=== PATIENT | male | born 1950 | race Caucasian/White ===

== ENCOUNTER 2017-06-29 14:54 | Emergency (ER) | payer OTHER ==
[2017-06-29 15:00] VITALS: BP 138/65; BMI 49.2
--- NOTE | 2017-06-29 15:30 | DR.EXTPAIN ---
HPI - Time seen Time seen: 15:10 - PCP Primary Care Physician: NITHYA - HPI Comment HPI Comment: Lt. wrist pain and swelling. Symmptoms started yesterday morning. On Monday evening, he was trying to and did twist open a jar. He is left hand dominant. - Complaint/Symptoms Chief Complaint:: PT. WAS ATTEMPTING TO OPEN A JAR 2 DAYS AGO AND TWISTED HIS LEFT WRIST. PT. C/O PAIN AND SWELLING TO LEFT WRIST. TOP OF LEFT HAND IS RED. - Nurses notes reviewed Nurses Notes Review: Yes - Source History Provided: Patient - Mode of arrival Mode of Arrival: Ambulatory - Timing Onset of Chief Complaint: 06/27/17 - Associated signs and symptoms Associated Signs and Symptoms: Swelling (left wrist) PMH - PMH Past Medical History: Yes Past Medical History: COPD, Diabetes, Hypertension Past Surgical History: Yes Past Surgical History Comment: LOWER BACK - Family History History of Family Medical Conditions: No - Social History Does patient currently use any type of tobacco product: Yes Have you used tobacco products in the last 12 months: Yes Type of Tobacco Use: Cigarettes Does any household member use tobacco: No Alcohol Use: None Do you use any recreational Drugs:: Yes (marijuana) Lives With: Spouse Lives Where: Home - infectious screening In the last 2 months have you had wt loss of >10#?: NO Have you had fever, night sweats or hemotysis?: No Have you traveled outside the country in the last 6 months?: No Isolation: Standard ROS - Review of Systems Constitutional: No Symptoms Reported Eyes: No Symptoms Reported ENTM: No Symptoms Reported Respiratoy: No Symptoms Reported Cardiovascular: No Symptoms Reported Gastrointestinal/Abdominal: No Symptoms Reported Genitourinary: No Symptoms Reported Neurological: No Symptoms Reported Musculoskeletal: Joint Pain (left wrist), Joint Swelling (left wrist), Wrist ( pain and swelling on left wrist) Integumentary: No Symptoms Reported Hematologic/Lymphatic: No Symptoms Reported Endocrine: No Symptoms Reported Psychiatric: No Symptoms Reported PE - Vital Signs Vitals: Temperature 98.4 F Pulse Rate 79 Respiratory Rate 17 Blood Pressure 138/65 O2 Sat by Pulse Oximetry 96 - General Limitations: No Limitations General Appearance: Alert, In No Apparent Distress - Head Head Exam: Normal Inspection - Eyes Eye exam: Normal Appearance - ENT ENT Exam: Normal Exam - Neck Neck Exam: Normal Inspection - Chest Chest Inspection: Normal Inspection - Respiratory Respiratory Exam: Normal Lung Sounds Bilat - Cardiovascular Cardiovascular Exam: Regular Rate, Normal Rhythm - Abdominal Exam Abdominal Exam: Normal Inspection, Normal Bowel Sounds, Soft - Upper Extremities Shoulder Exam: Tenderness (Lt. wrist), Swelling (lt. wrist). negative: Normal Inspection, Full ROM (ROM of his left wrist is decreased due to swelling) - Lower Extremities Neurovascular/Tendon Exam: Normal Capillary Refill Gait Exam: Observed and Normal - Neurological Neurological Exam: Alert, Oriented X3, CN II-XII Intact - Psychiatric Psychiatric Exam: Normal Affect, Normal Mood - Skin Skin Exam: Warm, Dry, Intact, Normal Color ROR - XRAY XRAY Interpreted by: Radiologist (Radiologist interpretation of Lt. wrist x-ray : Normal bony appearance, small metallic objective in skin or subcutaneous tissue.) - Diagnosis Discharge Problem: Left wrist sprain - Discharge Plan Condition: Stable - Follow ups/Referrals Follow ups/Referrals: NINFA BARRIGA [Primary Care Provider] - 3 days - Instructions Instructions: Wrist Sprain
--- NOTE | 2017-06-29 15:47 | RAD ---
Examination: Left wrist, three views History: Pain after opening a jar Findings: Normal appearance of carpal complex, without evidence for fracture, dislocation or specific arthropathy. Joint spaces are maintained. There are 2 or more small metallic foreign fragments in th e soft tissues posterior to the distal radius and ulna. Impression: Normal appearance of wrist. Metallic foreign material on skin surface or subcutaneous tis sues as described. Reported By:
== END 2017-06-29 16:41 | disposition home or self-care (01) ==
LOC: ER 15:02
DX: S63.502A Unspecified sprain of left wrist, initial encounter (principal); Y33.XXXA Other specified events, undetermined intent, initial encounter; Y92.9 Unspecified place or not applicable
CPT/HCPCS: 73100; 99282; 99283

== ENCOUNTER 2022-08-23 18:09 | Observation (INO) ==
--- NOTE | 2022-08-23 19:06 | DR.GENAD ---
HPI <Raphael Shelton - Last Filed: 08/25/22 08:41> Time Seen Time Seen by Provider: 08/23/22 19:04 PCP Primary Care Physician: DB Complaint/Symptoms Chief Complaint Doctors Comments: 71 y/o male presents for evaluation. Feeling bad since yesterday. + cough, productive of some brown phlegm (cough worse than usual, + h/o COPD). Having shortness of breath, worse with exertion. + low grade fever, + body aches. Was exposed to covid a week ago. Has been vaccinated for covid. Chief Complaint:: PT C/O FEVER SHAKING AND SHORTNESS OF BREATH X 1 DAY PT HAS BEEN EXPOSAED TO COVID COVID-19 Coronavirus risk:travel/contact w/high risk person: Yes Has patient experienced Coronavirus symptoms: Yes Coronavirus symptoms experienced: Fever, Coughing and Shortness of Breath Nurses notes reviewed Nurses Notes Review: Yes Source History Provided: Patient Mode of Arrival Mode of Arrival: Ambulatory Timing Onset of Chief Complaint: 08/23/22 <Evelina Mijares - Last Filed: 08/24/22 06:01> HPI Comment HPI Comment: Presents as below; normally uses 2 lpm oxygen at night only PMH <Raphael Shelton - Last Filed: 08/25/22 08:41> PMH Past Medical History: Yes Past Medical History: Anxiety, CHF, COPD, Diabetes and Hypertension Past Surgical History: Yes Surgical History: Ortho Surgery Family History History of Family Medical Conditions: Yes Family Medical History: Diabetes Mellitus, [place] and Hypertension Social History Does patient currently use any type of tobacco product: Yes Have you used tobacco products in the last 12 months: Yes Type of Tobacco Use: Cigarettes Does any household member use tobacco: Yes Alcohol Use: None Do you use any recreational Drugs:: No Lives With: Spouse Travel Risk Coronavirus risk:travel/contact w/high risk person: Yes Has patient experienced Coronavirus symptoms: Yes Coronavirus symptoms experienced: Fever, Coughing and Shortness of Breath Infectious screening In the last 2 months have you had wt loss of >10#?: NO Have you had fever, night sweats or hemotysis?: No Have you traveled outside the country in the last 6 months?: No Isolation: Droplet ROS <Raphael Shelton - Last Filed: 08/25/22 08:41> Review of Systems Constitutional: Fever and Weakness Eyes: No Symptoms Reported ENTM: No Symptoms Reported Respiratoy: Moist Cough and Short of Breath Cardiovascular: No Symptoms Reported Gastrointestinal/Abdominal: No Symptoms Reported Genitourinary: No Symptoms Reported Neurological: No Symptoms Reported Musculoskeletal: Muscle Pain Integumentary: No Symptoms Reported Hematologic/Lymphatic: No Symptoms Reported Psychiatric: No Symptoms Reported All Other Systems: Reviewed and Negative PE <Raphael Jamisonliz - Last Filed: 08/25/22 08:41> Vital Signs Vitals: Temperature 99.4 F Pulse Rate 99 Respiratory Rate 30 Blood Pressure 110/52 O2 Sat by Pulse Oximetry 95 General General Appearance: Alert and Other (+ mild respiratory distress) Eyes Eye exam: PERRL and EOMI ENT ENT Exam: Normal Oropharynx and Mucous Membranes Moist Neck Neck Exam: Normal Inspection and Full ROM Respiratory Respiratory Exam: Respiratory Distress Respiratory Exam: Bilateral: Wheezing and Bilateral: Rhonchi Cardiovascular Cardiovascular Exam: Regular Rate, Normal Rhythm and Normal Heart Sounds Abdominal Exam Abdominal Exam: Normal Bowel Sounds and Soft; negative Tenderness Extremities Extremities Exam: Normal Inspection and Full ROM; negative Edema Back Back Exam: Normal Inspection Neurologic Neurological Exam: Alert, Oriented X3 and CN II-XII Intact; negative Motor Sensory Deficit Skin Skin Exam: Warm and Dry <Evelina Mijares - Last Filed: 08/24/22 06:01> Vital Signs Vitals: Temperature 99.4 F Pulse Rate 99 Respiratory Rate 30 Blood Pressure 110/52 O2 Sat by Pulse Oximetry 95 COURSE <Raphael Jamisonliz - Last Filed: 08/25/22 08:41> Treatment Treatment: 71 y/o male, ill since yesterday. + COPD, having wheezing, worsening dyspnea. W/u initiated. Given IV solu-medrol, duoneb treatment. <Evelina Mijares - Last Filed: 08/24/22 06:01> Treatment Treatment: 71 y/o male, ill since yesterday. + COPD, having wheezing, worsening dyspnea. W/u initiated. Given IV solu-medrol, duoneb treatment. 2135 71 y/o with copd on chronic oxygen at night in as above; flu A + and bilateral pneumonia on pcxr; still very tight w/coarse wheezing s/p two jet nebs; O2 61 on 3lpm with CO2 46 and bicarb 33; will admit for aggressive nebs, tamiflu and iv abx Reevaluation 1st: Unchanged (minimal improvement per pt; still very tight with coarse wheezing throughout) ROR <Raphael Shelton - Last Filed: 08/25/22 08:41> Labs Reviewed Result Diagrams: 08/25/22 04:25 08/25/22 04:25 Laboratory: WBC 6.7 X10^3/uL (3.6-10.0) 08/23/22 19: RBC 4.66 X10^6/uL (4.7-6.0) L 08/23/22 19:21 Hgb 13.4 g/dL (13.5-18.0) L 08/23/22 19: Hct 40.9 % (42.0-54.0) L 08/23/22 19: MCV 87.8 fL (80.0-100.0) 08/23/22 19: MCH 28.8 pg (27.0-34.0) 08/23/22 19: MCHC 32.8 g/dL (33.0-35.0) L 08/23/22 19: RDW 15.2 % (11.6-16.5) 08/23/22 19: Plt Count 153 X10^3/uL (150.0-450.0) 08/23/22 19: MPV 8.4 fL (7.4-11.0) 08/23/22 19:21 Neut % (Auto) 88.4 % (42.0-75.0) H 08/23/22 19: Lymph % (Auto) 3.2 % (21.0-51.0) L 08/23/22 19: Love % (Auto) 7.8 % (0.0-13.0) 08/23/22 19: Eos % (Auto) 0.2 % (0.9-2.9) L 08/23/22 19: Baso % (Auto) 0.4 % (0.2-1.0) 08/23/22 19: Neut # (Auto) 5.9 x10^3/uL (2.2-4.8) H 08/23/22 19: Lymph # (Auto) 0.2 X10^3/uL (1.3-2.9) L 08/23/22 19:21 Love # (Auto) 0.5 x10^3/uL (0.3-0.8) 08/23/22 19:21 Eos # (Auto) 0.0 x10^3/uL (0.0-0.2) 08/23/22 19:21 Baso # (Auto) 0.0 X10^3/uL (0.0-0.1) 08/23/22 19:21 Absolute Nucleated RBC 0.1 /100WBC 08/23/22 19:21 Sample Site Rr 08/23/22 20:53 ABG pH 7.460 (7.35-7.45) H 08/23/22 20:53 ABG pCO2 46.0 mmHg (35.0-45.0) H 08/23/22 20:53 ABG pO2 61.0 mmHg (80.0-100.0) L 08/23/22 20:53 ABG HCO3 32.7 mmol/L (22-26) H* 08/23/22 20:53 ABG O2 Saturation 92.0 % (90-100) 08/23/22 20:53 ABG Base Excess 7.8 mmol/L (-2.0-2.0) H 08/23/22 20:53 James Test Pos 08/23/22 20:53 A-a Gradient 110.0 mmHg 08/23/22 20:53 FiO2 32.0 08/23/22 20:53 Blood Gas Comments Delia well sw 08/23/22 20:53 Sodium 139 mmol/L (136-145) 08/23/22 19:21 Corrected Sodium 140 mmol/L (136-145) 08/23/22 19:21 Potassium 3.8 mmol/L (3.5-5.1) 08/23/22 19:21 Chloride 99 mmol/L (98-107) 08/23/22 19:21 Carbon Dioxide 33.0 mmol/L (21-32) H 08/23/22 19:21 BUN 17 mg/dL (7-18) 08/23/22 19:21 Creatinine 1.14 mg/dL (0.70-1.30) 08/23/22 19:21 Est GFR (MDRD) Af Amer > 60 (>60) 08/23/22 19:21 Est GFR (MDRD) Non-Af > 60 (>60) 08/23/22 19:21 Glucose 139 mg/dL (65-99) H 08/23/22 19:21 Calcium 8.3 mg/dL (8.5-10.1) L 08/23/22 19:21 Corrected Calcium 9.0 mg/dL (8.5-10.1) 08/23/22 19:21 Total Bilirubin 0.20 mg/dL (0.2-1.0) 08/23/22 19:21 AST 19 Units/L (15-37) 08/23/22 19:21 ALT 14 Units/L (12-78) 08/23/22 19:21 Alkaline Phosphatase 103 Units/L (46-116) 08/23/22 19:21 Total Protein 7.1 g/dL (6.4-8.2) 08/23/22 19:21 Albumin 3.1 g/dL (3.4-5.0) L 08/23/22 19:21 Globulin 4.0 g/dL (2.5-4.5) 08/23/22 19:21 Albumin/Globulin Ratio 0.8 Ratio (1.1-2.1) L 08/23/22 19:21 SARS-CoV-2 (PCR) Negative (NEGATIVE) 08/23/22 18:17 Influenza Type A (PCR) Positive (NEGATIVE) A 08/23/22 18:17 Influenza Type B (PCR) Negative (NEGATIVE) 08/23/22 18:17 RSV (PCR) Negative (NEGATIVE) 08/23/22 18:17 <Evelina Mijares - Last Filed: 08/24/22 06:01> Labs Reviewed Laboratory: WBC 6.7 X10^3/uL (3.6-10.0) 08/23/22 19:21 RBC 4.66 X10^6/uL (4.7-6.0) L 08/23/22 19:21 Hgb 13.4 g/dL (13.5-18.0) L 08/23/22 19:21 Hct 40.9 % (42.0-54.0) L 08/23/22 19:21 MCV 87.8 fL (80.0-100.0) 08/23/22 19:21 MCH 28.8 pg (27.0-34.0) 08/23/22 19: MCHC 32.8 g/dL (33.0-35.0) L 08/23/22 19: RDW 15.2 % (11.6-16.5) 08/23/22 19:21 Plt Count 153 X10^3/uL (150.0-450.0) 08/23/22 19: MPV 8.4 fL (7.4-11.0) 08/23/22 19:21 Neut % (Auto) 88.4 % (42.0-75.0) H 08/23/22 19:21 Lymph % (Auto) 3.2 % (21.0-51.0) L 08/23/22 19: Love % (Auto) 7.8 % (0.0-13.0) 08/23/22 19:21 Eos % (Auto) 0.2 % (0.9-2.9) L 08/23/22 19:21 Baso % (Auto) 0.4 % (0.2-1.0) 08/23/22 19: Neut # (Auto) 5.9 x10^3/uL (2.2-4.8) H 08/23/22 19:21 Lymph # (Auto) 0.2 X10^3/uL (1.3-2.9) L 08/23/22 19:21 Love # (Auto) 0.5 x10^3/uL (0.3-0.8) 08/23/22 19: Eos # (Auto) 0.0 x10^3/uL (0.0-0.2) 08/23/22 19: Baso # (Auto) 0.0 X10^3/uL (0.0-0.1) 08/23/22 19: Absolute Nucleated RBC 0.1 /100WBC 08/23/22 19: Sample Site Rr 08/23/22 20:53 ABG pH 7.460 (7.35-7.45) H 08/23/22 20:53 ABG pCO2 46.0 mmHg (35.0-45.0) H 08/23/22 20:53 ABG pO2 61.0 mmHg (80.0-100.0) L 08/23/22 20:53 ABG HCO3 32.7 mmol/L (22-26) H* 08/23/22 20:53 ABG O2 Saturation 92.0 % (90-100) 08/23/22 20:53 ABG Base Excess 7.8 mmol/L (-2.0-2.0) H 08/23/22 20:53 James Test Pos 08/23/22 20:53 A-a Gradient 110.0 mmHg 08/23/22 20:53 FiO2 32.0 08/23/22 20:53 Blood Gas Comments Delia well sw 08/23/22 20:53 Sodium 139 mmol/L (136-145) 08/23/22 19:21 Corrected Sodium 140 mmol/L (136-145) 08/23/22 19:21 Potassium 3.8 mmol/L (3.5-5.1) 08/23/22 19:21 Chloride 99 mmol/L (98-107) 08/23/22 19:21 Carbon Dioxide 33.0 mmol/L (21-32) H 08/23/22 19:21 BUN 17 mg/dL (7-18) 08/23/22 19:21 Creatinine 1.14 mg/dL (0.70-1.30) 08/23/22 19:21 Est GFR (MDRD) Af Amer > 60 (>60) 08/23/22 19:21 Est GFR (MDRD) Non-Af > 60 (>60) 08/23/22 19:21 Glucose 139 mg/dL (65-99) H 08/23/22 19:21 Calcium 8.3 mg/dL (8.5-10.1) L 08/23/22 19:21 Corrected Calcium 9.0 mg/dL (8.5-10.1) 08/23/22 19:21 Total Bilirubin 0.20 mg/dL (0.2-1.0) 08/23/22 19:21 AST 19 Units/L (15-37) 08/23/22 19:21 ALT 14 Units/L (12-78) 08/23/22 19:21 Alkaline Phosphatase 103 Units/L (46-116) 08/23/22 19:21 Total Protein 7.1 g/dL (6.4-8.2) 08/23/22 19:21 Albumin 3.1 g/dL (3.4-5.0) L 08/23/22 19:21 Globulin 4.0 g/dL (2.5-4.5) 08/23/22 19:21 Albumin/Globulin Ratio 0.8 Ratio (1.1-2.1) L 08/23/22 19:21 SARS-CoV-2 (PCR) Negative (NEGATIVE) 08/23/22 18:17 Influenza Type A (PCR) Positive (NEGATIVE) A 08/23/22 18:17 Influenza Type B (PCR) Negative (NEGATIVE) 08/23/22 18:17 RSV (PCR) Negative (NEGATIVE) 08/23/22 18:17 XRAY XRAY Interpreted by: Self X-ray Results: pcxr: bilateral pulm infiltrates Opioid <Raphael Shelton - Last Filed: 08/25/22 08:41> Opioid Risk Tool Age (Javed box if 16-45): No History of Preadolescent Sexual Abuse: No Total: 0 Total Score Risk Category: Low Risk Copyright: Saji BEAR predicting aberrant behaviors <Evelina Mijares - Last Filed: 08/24/22 06:01> Opioid Risk Tool Total: 0 Total Score Risk Category: Low Risk Discharge Plan Diagnosis Discharge Problem: Acute on chronic respiratory failure, COPD exacerbation, Influenza A, Bilateral pneumonia Discharge Plan Patient Disposition: 09 ADMITTED INPATIENT Condition: Stable
[2022-08-23] MEDS ORDERED: DUONEB 0.5 MG/3 MG (3 mL) NEB ONE ×3 (19:13→20:18)
[2022-08-23] MEDS ORDERED: SOLU-Medrol 125 MG VIAL IVP ONE (19:13)
[2022-08-23] MEDS ORDERED: SOLU-Medrol 125 MG VIAL ONE (19:16)
[2022-08-23 19:31] LABS: BASOPHILS % (AUTO) 0.4 % (0.2-1.0); EOSINOPHILS % (AUTO) 0.2 % (0.9-2.9); HEMATOCRIT 40.9 % (42.0-54.0); HEMOGLOBIN 13.4 g/dL (13.5-18.0); LYMPHOCYTES # (AUTO) 0.2 X10^3/uL (1.3-2.9); LYMPHOCYTES % (AUTO) 3.2 % (21.0-51.0); MEAN CORPUSCULAR HEMOGLOBIN 28.8 pg (27.0-34.0); MEAN CORPUSCULAR HGB CONC 32.8 g/dL (33.0-35.0); MEAN CORPUSCULAR VOLUME 87.8 fL (80.0-100.0); MEAN PLATELET VOLUME 8.4 fL (7.4-11.0); MONOCYTES # (AUTO) 0.5 x10^3/uL (0.3-0.8); MONOCYTES % (AUTO) 7.8 % (0.0-13.0); NEUTROPHILS # (AUTO) 5.9 x10^3/uL (2.2-4.8); NEUTROPHILS % (AUTO) 88.4 % (42.0-75.0); RED BLOOD COUNT 4.66 X10^6/uL (4.7-6.0); RED CELL DISTRIBUTION WIDTH 15.2 % (11.6-16.5); WHITE BLOOD COUNT 6.7 X10^3/uL (3.6-10.0)
[2022-08-23 19:51] LABS: ALANINE AMINOTRANSFERASE 14 Units/L (12-78); ALBUMIN 3.1 g/dL (3.4-5.0); ALKALINE PHOSPHATASE 103 Units/L (46-116); ASPARTATE AMINO TRANSFERASE 19 Units/L (15-37); BLOOD UREA NITROGEN 17 mg/dL (7-18); CALCIUM 8.3 mg/dL (8.5-10.1); CHLORIDE 99 mmol/L (98-107); COR NA(FOR HYPERGLY) 140 mmol/L (136-145); CREATININE 1.14 mg/dL (0.70-1.30); SODIUM 139 mmol/L (136-145); TOTAL PROTEIN 7.1 g/dL (6.4-8.2); eGFR NON BLACK RACES > 60 (>60)
[2022-08-23 21:11] LABS: ABG BASE EXCESS 7.8 mmol/L (-2.0-2.0)
[2022-08-23 21:12] LABS: ABG ALLEN TEST POS; ABG HCO3 32.7 mmol/L (22-26)
[2022-08-23] MEDS ORDERED: ROCEPHIN 1 GRAM IV PREMIX 1 G/50 ML IV.SOLN. IV ONE (21:19)
[2022-08-23] MEDS ORDERED: TAMIFLU PO ONE (21:21)
[2022-08-23] MEDS ORDERED: ROCEPHIN VIAL 1 GRAM ONE (21:22)
[2022-08-23] MEDS: TAMIFLU PO SCH (21:27)
[2022-08-23] MEDS ORDERED: ROCEPHIN VIAL 1 GRAM 1 G in NS 100 ML IV 100 ML IV SCH (21:30)
[2022-08-23] MEDS ORDERED: TYLENOL 500 MG TAB EXTRA STRENGTH PO PRN (21:54)
[2022-08-23] MEDS ORDERED: ZOFRAN INJ 4 MG VIAL IVP PRN (21:54)
[2022-08-23] MEDS ORDERED: TESSALON PERLES PO PRN (21:54)
[2022-08-23] MEDS ORDERED: NS 1,000 ML IV 1,000 ML ONE (22:18)
[2022-08-23] MEDS: NS 1,000 ML IV 1,000 ML IV SCH (22:21)
--- NOTE | 2022-08-23 23:29 | RAD ---
HISTORYPT C/O FEVER SHAKING AND SHORTNESS OF BREATH X 1 DAY PT HAS BEEN EXPOSAED TO COVID Relevant Clinical InformationSTUDYCHEST, 1 [id number]/01/2022.FINDINGSThe trachea is midline. The cardiac silhouette is unremarkable. The pulmonary blood flow is congested. There is nonspecific interstitial prominence in the lungs bilaterally. There is no focal airspace opacity and no pleural effusion. The bony thorax is unremarkable.IMPRESSIONNonspecific bilateral interstitial prominence. This could be atypical infection.Electronically signed by: Peña Herron (Aug 23, 2022 23:28:42)
[2022-08-24] MEDS: DUONEB 0.5 MG/3 MG (3 mL) NEB SCH ×4 (00:42→16:28)
[2022-08-24 05:03] LABS: BASOPHILS % (AUTO) 0.4 % (0.2-1.0); HEMATOCRIT 38.5 % (42.0-54.0); HEMOGLOBIN 12.8 g/dL (13.5-18.0); LYMPHOCYTES # (AUTO) 0.2 X10^3/uL (1.3-2.9); LYMPHOCYTES % (AUTO) 3.4 % (21.0-51.0); MEAN CORPUSCULAR HEMOGLOBIN 28.7 pg (27.0-34.0); MEAN CORPUSCULAR HGB CONC 33.3 g/dL (33.0-35.0); MEAN CORPUSCULAR VOLUME 86.3 fL (80.0-100.0); MEAN PLATELET VOLUME 8.8 fL (7.4-11.0); MONOCYTES # (AUTO) 0.2 x10^3/uL (0.3-0.8); MONOCYTES % (AUTO) 3.1 % (0.0-13.0); NEUTROPHILS % (AUTO) 93.1 % (42.0-75.0); RED BLOOD COUNT 4.46 X10^6/uL (4.7-6.0); RED CELL DISTRIBUTION WIDTH 14.8 % (11.6-16.5); WHITE BLOOD COUNT 5.3 X10^3/uL (3.6-10.0)
[2022-08-24 05:28] LABS: ALBUMIN 3.1 g/dL (3.4-5.0); ALKALINE PHOSPHATASE 97 Units/L (46-116); eGFR NON BLACK RACES > 60 (>60)
[2022-08-24 05:39] LABS: PLATELET MORPHOLOGY COMMENT NORMAL (NORMAL)
[2022-08-24 05:53] LABS: ALANINE AMINOTRANSFERASE 17 Units/L (12-78); ASPARTATE AMINO TRANSFERASE 25 Units/L (15-37); BLOOD UREA NITROGEN 20 mg/dL (7-18); CALCIUM 8.8 mg/dL (8.5-10.1); CARBON DIOXIDE 34.7 mmol/L (21-32); CHLORIDE 93 mmol/L (98-107); COR CA(FOR HYPOALB) 9.5 mg/dL (8.5-10.1); COR NA(FOR HYPERGLY) 131 mmol/L (136-145); CREATININE 1.08 mg/dL (0.70-1.30); SODIUM 130 mmol/L (136-145); TOTAL PROTEIN 6.9 g/dL (6.4-8.2)
[2022-08-24] MEDS ORDERED: TAMIFLU PO SCH (09:00)
[2022-08-24] MEDS: PULMICORT NEB TX 0.5 MG NEB SCH ×2 (09:06→21:28)
[2022-08-24] MEDS: LOVENOX INJ 40 MG SYR SC SCH (09:51)
[2022-08-24] MEDS: TAMIFLU PO SCH ×2 (09:51→21:27)
[2022-08-24] MEDS: NS 1,000 ML IV 1,000 ML IV SCH (11:04)
[2022-08-24 18:21] VITALS: BMI 47.7
--- NOTE | 2022-08-24 18:29 | DR.H&P ---
H&P - History & Physical for Day of: H&P Date: 08/23/22 - Chief Complaint Chief Complaint: fever, ccc - History of Present Illness History of Present Illness: 71 y/o male presents for evaluation. Feeling bad since yesterday. + cough, productive of some brown phlegm (cough worse than usual, + h/o COPD). Having shortness of breath, worse with exertion. + low grade fever, + body aches. Was exposed to covid a week ago. Has been vaccinated for covid. - Past Medical History Past Medical History: Hypertension, Diabetes, Anxiety, COPD, CHF - Past Surgical History Surgical History: Ortho Surgery - Family History Family Medical History: Cancer - Social History Does patient currently use any type of tobacco product: No Have you used tobacco products in the last 12 months: Yes Type of Tobacco Use: Cigarettes Does any household member use tobacco: Yes Alcohol Use: None Drug Use: Marijuana - Medications Home Medications: No Known Drug Allergies Allergy (Verified 06/29/17 15:00) - Review of Systems Constitutional: Fever, Weakness, Malaise Eyes: No Symptoms Reported ENT: Nose Discharge Respiratory: Cough, Shortness of Breath, SOB with Excertion, Sputum, Wheezing Cardiovascular: No Symptoms Reported, Edema Gastrointestinal: Nausea Genitourinary: No Symptoms Reported Musculoskeletal: Back Pain, Leg Pain Skin: Other (lower leg redness) Neurological: Weakness - Physical Exam Vital Signs: Temperature 98 F Pulse Rate [Left Brachial] 88 Pulse Rate 99 Respiratory Rate 24 Blood Pressure [Left Arm] 187/88 Blood Pressure 110/52 O2 Sat by Pulse Oximetry 95 Oriented: Normal Eyes: Normal Ear: Normal Nose: Discharge Throat: Red, Exudate Respiratory: RLL Diminished, LLL Diminished Cardiovascular: Normal : Normal Auscultation: Bowel Sounds: Normal Palpation: Normal Tenderness: Normal Skin: Decreased Turgur Musculoskeletal: Normal Psychiatric: Anxiety Affect: Anxious Speech Pattern: Clear, Appropriate - Assessment/Plan (1) Influenza A Status: Acute Plan: ADMIT, IV ATBX THERAPY. RESP THERAPY, TAMIFLY. VERIFY HOME MEDICATION. IV SOLU MEDROL, STRICT I&OS. REPEAT AM CXR AND ABG (2) COPD exacerbation Status: Acute - Allergies Allergies/Adverse Reactions: Allergies Allergy/AdvReac Type Severity Reaction Status Date / Time No Known Drug Allergies Allergy Verified 06/29/17 15:00
[2022-08-24] MEDS: SOLU-Medrol 125 MG VIAL IVP SCH ×2 (19:37→21:42)
[2022-08-24] MEDS ORDERED: OMEPRAZOLE 20 MG PO SCH (21:00)
[2022-08-24] MEDS ORDERED: METOPROLOL TARTRATE 25 MG PO SCH (21:00)
[2022-08-24] MEDS: LOPRESSOR TAB 25 MG PO SCH (21:26)
[2022-08-24] MEDS: ROBITUSSIN DM PO SCH (21:26)
[2022-08-24] MEDS: ROCEPHIN VIAL 1 GRAM 1 G in NS 100 ML IV 100 ML IV SCH (21:27)
[2022-08-24] MEDS: PriLOSEC PO SCH (21:27)
[2022-08-24] MEDS: NEURONTIN CAP 400 MG PO SCH (21:27)
[2022-08-24] MEDS ORDERED: ROCEPHIN 1 GRAM IV PREMIX 1 G/50 ML IV.SOLN. IV SCH (21:55)
[2022-08-24] MEDS ORDERED: GABAPENTIN 400 MG PO SCH (22:00)
[2022-08-25] MEDS: NS 1,000 ML IV 1,000 ML IV SCH ×3 (00:07→12:39)
[2022-08-25] MEDS: DUONEB 0.5 MG/3 MG (3 mL) NEB SCH ×4 (00:47→17:00)
[2022-08-25] MEDS: SOLU-Medrol 125 MG VIAL IVP SCH ×3 (05:11→21:50)
[2022-08-25] MEDS: NEURONTIN CAP 400 MG PO SCH ×3 (05:11→21:18)
[2022-08-25 05:20] LABS: BASOPHILS % (AUTO) 0.2 % (0.2-1.0); HEMATOCRIT 41.3 % (42.0-54.0); HEMOGLOBIN 13.7 g/dL (13.5-18.0); LYMPHOCYTES # (AUTO) 0.4 X10^3/uL (1.3-2.9); LYMPHOCYTES % (AUTO) 7.5 % (21.0-51.0); MEAN CORPUSCULAR HEMOGLOBIN 28.6 pg (27.0-34.0); MEAN CORPUSCULAR HGB CONC 33.2 g/dL (33.0-35.0); MEAN CORPUSCULAR VOLUME 85.9 fL (80.0-100.0); MEAN PLATELET VOLUME 8.8 fL (7.4-11.0); MONOCYTES # (AUTO) 0.3 x10^3/uL (0.3-0.8); MONOCYTES % (AUTO) 6.3 % (0.0-13.0); NEUTROPHILS # (AUTO) 4.5 x10^3/uL (2.2-4.8); RED BLOOD COUNT 4.81 X10^6/uL (4.7-6.0); RED CELL DISTRIBUTION WIDTH 15.4 % (11.6-16.5); WHITE BLOOD COUNT 5.2 X10^3/uL (3.6-10.0)
[2022-08-25 05:37] LABS: ALANINE AMINOTRANSFERASE 22 Units/L (12-78); ALBUMIN 2.8 g/dL (3.4-5.0); ALKALINE PHOSPHATASE 93 Units/L (46-116); ASPARTATE AMINO TRANSFERASE 32 Units/L (15-37); BLOOD UREA NITROGEN 21 mg/dL (7-18); CHLORIDE 104 mmol/L (98-107); COR NA(FOR HYPERGLY) 143 mmol/L (136-145); CREATININE 0.98 mg/dL (0.70-1.30); SODIUM 143 mmol/L (136-145); TOTAL PROTEIN 6.5 g/dL (6.4-8.2); eGFR NON BLACK RACES > 60 (>60)
[2022-08-25] MEDS: PULMICORT NEB TX 0.5 MG NEB SCH ×2 (08:57→21:00)
[2022-08-25] MEDS ORDERED: FUROSEMIDE 40 MG PO SCH (09:00)
[2022-08-25] MEDS ORDERED: LISINOPRIL 40 MG PO SCH (09:00)
[2022-08-25] MEDS: ROBITUSSIN DM PO SCH ×4 (09:39→21:17)
[2022-08-25] MEDS: LOVENOX INJ 40 MG SYR SC SCH (09:39)
[2022-08-25] MEDS: LASIX PO SCH (09:40)
[2022-08-25] MEDS: LOPRESSOR TAB 25 MG PO SCH ×2 (09:40→21:17)
[2022-08-25] MEDS: TAMIFLU PO SCH ×2 (09:41→21:18)
[2022-08-25] MEDS: PriLOSEC PO SCH ×2 (09:41→21:19)
[2022-08-25] MEDS: APRESOLINE INJ 20 MG VIAL IVP PRN ×2 (12:44→19:55)
[2022-08-25] MEDS: ROCEPHIN VIAL 1 GRAM 1 G in NS 100 ML IV 100 ML IV SCH (21:20)
[2022-08-26] MEDS: DUONEB 0.5 MG/3 MG (3 mL) NEB SCH ×2 (00:05→12:05)
[2022-08-26] MEDS: NS 1,000 ML IV 1,000 ML IV SCH (02:02)
[2022-08-26 05:09] LABS: BASOPHILS % (AUTO) 0.4 % (0.2-1.0); HEMATOCRIT 42.4 % (42.0-54.0); HEMOGLOBIN 14.1 g/dL (13.5-18.0); LYMPHOCYTES # (AUTO) 0.5 X10^3/uL (1.3-2.9); LYMPHOCYTES % (AUTO) 6.7 % (21.0-51.0); MEAN CORPUSCULAR HEMOGLOBIN 28.6 pg (27.0-34.0); MEAN CORPUSCULAR HGB CONC 33.3 g/dL (33.0-35.0); MEAN CORPUSCULAR VOLUME 86.1 fL (80.0-100.0); MEAN PLATELET VOLUME 8.7 fL (7.4-11.0); MONOCYTES # (AUTO) 0.3 x10^3/uL (0.3-0.8); MONOCYTES % (AUTO) 3.9 % (0.0-13.0); NEUTROPHILS # (AUTO) 6.5 x10^3/uL (2.2-4.8); RED BLOOD COUNT 4.93 X10^6/uL (4.7-6.0); RED CELL DISTRIBUTION WIDTH 14.9 % (11.6-16.5); WHITE BLOOD COUNT 7.3 X10^3/uL (3.6-10.0)
[2022-08-26 05:26] LABS: ALANINE AMINOTRANSFERASE 84 Units/L (12-78); ALKALINE PHOSPHATASE 101 Units/L (46-116); ASPARTATE AMINO TRANSFERASE 84 Units/L (15-37); BLOOD UREA NITROGEN 27 mg/dL (7-18); CALCIUM 8.3 mg/dL (8.5-10.1); CARBON DIOXIDE 30.4 mmol/L (21-32); CHLORIDE 101 mmol/L (98-107); COR CA(FOR HYPOALB) 9.1 mg/dL (8.5-10.1); COR NA(FOR HYPERGLY) 142 mmol/L (136-145); CREATININE 1.08 mg/dL (0.70-1.30); SODIUM 141 mmol/L (136-145); TOTAL PROTEIN 6.9 g/dL (6.4-8.2); eGFR NON BLACK RACES > 60 (>60)
[2022-08-26] MEDS: SOLU-Medrol 125 MG VIAL IVP SCH (05:51)
[2022-08-26] MEDS: NEURONTIN CAP 400 MG PO SCH (05:51)
[2022-08-26] MEDS ORDERED: TUSSIONEX PENNKINETIC SUSP PO PRN (08:32)
[2022-08-26] MEDS ORDERED: PROSCAR PO SCH (09:00)
[2022-08-26] MEDS ORDERED: SYNTHROID 88 mcg TAB PO SCH (09:00)
[2022-08-26] MEDS ORDERED: LOPRESSOR TAB 25 MG PO SCH (09:00)
[2022-08-26] MEDS: PULMICORT NEB TX 0.5 MG NEB SCH (09:20)
[2022-08-26] MEDS: ROBITUSSIN DM PO SCH (09:30)
[2022-08-26] MEDS: TAMIFLU PO SCH (09:30)
[2022-08-26] MEDS: LASIX PO SCH (09:30)
[2022-08-26] MEDS: PriLOSEC PO SCH (09:30)
[2022-08-26] MEDS: LOPRESSOR TAB 25 MG PO SCH (09:30)
[2022-08-26] MEDS: LOVENOX INJ 40 MG SYR SC SCH (09:31)
--- NOTE | 2022-08-26 11:37 | RAD ---
HISTORYCOPD fluSTUDYPortable AP chestCOMPARISONFINDINGSSimilar heart size. The left lung is now clear without definite infiltrate. There is a persistent increase in parenchymal density over the right upper lobe. This could represent an inflammatory process. The right lower lung and pleural spaces are clear.IMPRESSIONFindings concerning for a right upper lobe inflammatory process. Continued follow-up suggested.Electronically signed by: TAYLER YANG (Aug 26, 2022 11:36:45)
[2022-08-26 13:23] VITALS: BP 160/85
[2022-08-26] MEDS ORDERED: ZOCOR TAB 40 MG PO SCH (21:00)
[2022-08-26] MEDS ORDERED: PATIENT'S HOME MEDICATION (Alfuzosin 10 mg Tablet Extended Release 24 Hr) PO SCH (21:00)
[2022-08-26] MEDS ORDERED: ZOLOFT PO SCH (21:00)
== END 2022-08-26 13:35 | disposition home or self-care (01) ==
LOC: ER 18:09 → MED/SURG 18:09
PROVIDERS: ADMIT Internal Medicine; ATTEND Internal Medicine
DX: E87.1 Hypo-osmolality and hyponatremia; J44.1 Chronic obstructive pulmonary disease with (acute) exacerbation; J96.20 Acute and chronic respiratory failure, unspecified whether with hypoxia or hypercapnia; Z66 Do not resuscitate; R26.89 Other abnormalities of gait and mobility; R06.02 Shortness of breath; I10 Essential (primary) hypertension; Z20.822 Contact with and (suspected) exposure to COVID-19; E11.65 Type 2 diabetes mellitus with hyperglycemia; F41.8 Other specified anxiety disorders; Z99.81 Dependence on supplemental oxygen; J10.01 Influenza due to other identified influenza virus with the same other identified influenza virus pneumonia